=== PATIENT | female | born 1970 | race Two or more races ===

== ENCOUNTER → 2017-01-14 | Outpatient (CLI) | payer OTHER ==
--- NOTE | ~2017-01-14 | MY29 ---
[facility] A Service of [facility] RADIOLOGY TEXT RESULTS PATIENT: JAYLENE MOFFETT LOCATION: [facility] : 70 UNIT #: [id number] AGE: [address]: ALICIA ROBLES MD SEX: F ORDER DR: [id number] [facility] [address] [place], [place] [address] [id number] O MR#: [id number] Acc #: [id number] NAME: JAYLENE MOFFETT : 1970 SEX: F STUDY DATE/TIME: 01/14/2017 8:14 UNIT: [facility] ROOM: STUDY DESCRIPTION: MY JUSTYN SCREENING W/ CAD BILAT Attending Physician: Alicia Robles M.D. Referring Physician: Alicia Robles M.D. Ordering Physician: Alicia Robles M.D. Primary Care Physician: Alicia Robles M.D. MEDICAL IMAGING REPORT This report is preliminary unless electronic signature is present EXAM Digital screening mammogram 01/14/2017. [facility] HISTORY 46-year-old woman for baseline mammogram. No risk elevation. COMPARISON: None FINDINGS Digital imaging of each breast was completed utilizing a two-view examination of each breast in craniocaudal and mediolateral-oblique projections. Review and interpretation of digital mammograms include a second review in conjunction with FDA-approved CAD device. There is a normal parenchymal presentation bilaterally consistent with the patient's age. There are no breast masses imaged and no parenchymal asymmetry is visualized. There are no suspicious microcalcifications and I see no focal architectural disturbance. IMPRESSION Negative screening digital mammogram. One-year followup recommended. Patients over the age of 40 are entered into a reminder system with target due date for the next mammogram. A result letter will also be sent to the patient. BIRADS: 1 Negative Dictated by... [facility] A Service of [facility] RADIOLOGY TEXT RESULTS PATIENT: JAYLENE MOFFETT LOCATION: [facility] : 70 UNIT #: [id number] AGE: [address]: ALICIA ROBLES MD SEX: F ORDER DR: Dann Cruz M.D. THIS IS AN ELECTRONICALLY VERIFIED REPORT Dann Cruz M.D. at 01/14/2017 2:17 PM Jean TD: 01/14/2017 14:15 JOB #: [id number] MEDICAL IMAGING REPORT Page 1 of 1 COPY
== END | disposition home or self-care (01) ==
LOC: CWCC 07:48
DX: Z12.31 Encounter for screening mammogram for malignant neoplasm of breast (principal)
CPT/HCPCS: G0202